=== PATIENT | female | born 1940 | race Caucasian/White ===

== ENCOUNTER → 2017-04-01 | Outpatient (CLI) | payer MEDICARE ==
--- NOTE | 2017-04-02 10:52 | MM ---
Reason for exam: screening (asymptomatic). Last mammogram was performed 1 year and 1 month ago. History: Patient is postmenopausal. Family history of breast cancer in maternal aunt. Physical Findings: A clinical breast exam by your physician is recommended on an annual basis and results should be correlated with mammographic findings. MG 3D Screening Mammo W/Cad Bilateral CC and MLO view(s) were taken. Prior study comparison: March 05, 2016, mammogram, performed at [facility]. February 14, 2015, mammogram, performed at [facility]. The breast tissue is heterogeneously dense. This may lower the sensitivity of mammography. Stable benign calcifications. There is no discrete abnormality. ASSESSMENT: Benign, BI-RAD 2 RECOMMENDATION: Routine screening mammogram of both breasts in 1 year.
== END | disposition home or self-care (01) ==
LOC: RADMAMWWP 10:36
PROVIDERS: ATTEND Family Medicine
DX: Z12.31 Encounter for screening mammogram for malignant neoplasm of breast (principal)
CPT/HCPCS: 77063; 77067

== ENCOUNTER → 2018-04-06 | Outpatient (CLI) | payer MEDICARE ==
--- NOTE | 2018-04-19 10:14 | MM ---
Reason for exam: screening (asymptomatic). Last mammogram was performed 1 year ago. History: Patient is postmenopausal. Family history of breast cancer in maternal aunt. MG 3D Screening Mammo W/Cad Bilateral CC and MLO view(s) were taken. Prior study comparison: April 01, 2017, bilateral MG 3d screening mammo w/cad. March 05, 2016, mammogram, performed at [facility]. The breast tissue is heterogeneously dense. This may lower the sensitivity of mammography. There is nodule of focal asymmetry 12-1 o'clock middle depth left breast appears more defined. ASSESSMENT: Incomplete: need additional imaging evaluation, BI-RAD 0 RECOMMENDATION: Special view mammogram of the left breast.
== END | disposition home or self-care (01) ==
LOC: RADMAMWWP 15:44
PROVIDERS: ATTEND Family Medicine
DX: Z12.31 Encounter for screening mammogram for malignant neoplasm of breast (principal)
CPT/HCPCS: 77063; 77067

== ENCOUNTER → 2018-04-22 | Outpatient (CLI) | payer MEDICARE ==
--- NOTE | 2018-04-24 11:29 | MM ---
Reason for exam: additional evaluation requested from abnormal screening. Last mammogram was performed 1 month ago. History: Patient is postmenopausal. Family history of breast cancer in maternal aunt. Took estrogen for 6 months beginning at age 51. Took progesterone for 6 months beginning at age 51. Benign right cyst biopsy in 1989. Physical Findings: Nurse did not find any significant physical abnormalities on exam. MG 3D Work Up W/Cad LT Spot compression CC, spot compression MLO, and LM view(s) were taken of the left breast. Prior study comparison: April 06, 2018, bilateral MG 3d screening mammo w/cad. April 01, 2017, bilateral MG 3d screening mammo w/cad. No discrete abnormality including area of concern. These results were verbally communicated with the patient and result sheet given to the patient on 04/22/18 ASSESSMENT: Probably benign, BI-RAD 3 RECOMMENDATION: Follow-up diagnostic mammogram of the left breast in 6 months.
== END | disposition home or self-care (01) ==
LOC: RADMAMWWP 14:37
PROVIDERS: ATTEND Family Medicine
DX: R92.8 Other abnormal and inconclusive findings on diagnostic imaging of breast (principal)
CPT/HCPCS: 77065; G0279; 77061

== ENCOUNTER → 2018-07-20 | Outpatient (CLI) | payer MEDICARE ==
[2018-07-20 11:01] LABS: Basophils % (A) 0 %; Eosinophils # (A) 0.2 k/uL (0-0.7); Eosinophils % (A) 3 %; HGB 11.1 gm/dL (11.4-16.0); Lymphocytes # (A) 1.2 k/uL (1.0-4.8); Lymphocytes % (A) 19 %; MCH 30.2 pg (25.0-35.0); MCHC 32.8 g/dL (31.0-37.0); Mean Platelet Volume 7.3; Monocytes # (A) 0.4 k/uL (0-1.0); Monocytes % (A) 6 %; Neutrophils # (A) 4.7 k/uL (1.3-7.7); Neutrophils % (A) 70 %; Platelet Count 262 k/uL (150-450); RDW 13.9 % (11.5-15.5); WBC 6.7 k/uL (3.8-10.6)
[2018-07-20 13:05] LABS: Erythrocyte Sedimentation Rate 18 mm/hr (0-20)
[2018-07-20 16:41] LABS: Albumin 4.3 g/dL (3.80-4.90); Albumin/Globulin Ratio 2.39 (1.60-3.17); Anion Gap 6.2 mmol/L (4.00-12.00); C Reactive Protein 1.1 mg/dL (0.0-0.8); Carbon Dioxide 24.8 mmol/L (21.6-31.8); Globulin 1.8 g/dL (1.6-3.3); Potassium 4.3 mmol/L (3.5-5.5); Total Bilirubin 0.3 mg/dL (0.3-1.2); Total Protein 6.1 g/dL (6.2-8.2)
== END | disposition home or self-care (01) ==
LOC: LABWHC1 09:45
PROVIDERS: ATTEND Physician Assistant
DX: K52.9 Noninfective gastroenteritis and colitis, unspecified (principal)
CPT/HCPCS: 36415; 80053; 83630; 85025; 85652; 86140; 87045; 87046; 87324

== ENCOUNTER 2018-08-09 09:17 | Day surgery (SDC) | payer MEDICARE ==
[2018-08-08 08:31] VITALS: BMI 28.9
[~2018-08-09 09:17] MED LIST: LACTATED RINGERS 1,000 ML IV SCH
[2018-08-09 10:07] VITALS: RESP 16; TEMP 98.3
[2018-08-09] MEDS ORDERED: LIDOCAINE 1% 20 ML VIAL (10MG/ML) FOR IV START INTRADERMA ONE (10:15)
[2018-08-09] MEDS ORDERED: PROPOFOL 10 MG/ML 20 ML VIAL IV ONE (10:34)
--- NOTE | 2018-08-09 11:05 | P.PCN ---
Date of Procedure: 08/09/18 Procedure(s) Performed: Procedure: Colonoscopy and biopsy. Preoperative diagnosis: Chronic diarrhea and history of diarrhea predominant irritable bowel syndrome. Postoperative diagnosis: 1. Exam of the colon and terminal ileum within normal limits. 2. Biopsies obtained from the terminal ileum and right colon. Preparation: HalfLytely prep. Sedation: Was provided by anesthesia. Brief clinical history: The patient is a 77-year-old female who is scheduled for this evaluation because of chronic diarrhea. She was diagnosed with diarrhea predominant irritable bowel syndrome around 7-10 years ago. The patient has been having worsening symptoms despite using probiotics and Lomotil in increasing doses. She also reinitiated anti-spasmodic therapy. Her last colonoscopy was in April 2015. Procedure: With the patient on her left lateral decubitus position and after informed consent and adequate sedation, the perianal area was inspected and it did not show any fissures or fistulas. There were no masses felt on digital rectal examination. The Olympus CFH 190L video colonoscope was then inserted in the rectum in the usual fashion and advanced to the cecum. I intubated the ileocecal valve and examined the terminal ileum. Terminal ileum and colon appeared healthy with no edema, erythema, friability, ulceration, exudation or spontaneous bleeding. No polyps or tumors were seen or any obvious diverticular disease or other pathology. I obtained biopsies from the right colon and terminal ileum then I retroflexed the endoscope in the rectum before the endoscope was withdrawn. The patient tolerated the procedure well. Plan: The patient was reassured. Will await biopsy results. She will follow-up with you as planned and she will follow-up in our office in a week or so and we would keep you updated on her progress.
[2018-08-09 11:39] VITALS: BP 146/76; PULSE 70
== END 2018-08-09 11:40 | disposition home or self-care (01) ==
LOC: ORWHC2ENDO 09:17
DX: K52.839 Microscopic colitis, unspecified (principal); R19.7 Diarrhea, unspecified; M19.90 Unspecified osteoarthritis, unspecified site; I10 Essential (primary) hypertension; E78.5 Hyperlipidemia, unspecified; E07.9 Disorder of thyroid, unspecified; Z88.5 Allergy status to narcotic agent; Z88.2 Allergy status to sulfonamides; Z91.040 Latex allergy status; Z79.890 Hormone replacement therapy; Z79.82 Long term (current) use of aspirin; Z79.899 Other long term (current) drug therapy; Z88.8 Allergy status to other drugs, medicaments and biological substances
CPT/HCPCS: 88305; 88313; 45380; J2704

== ENCOUNTER → 2018-10-24 | Outpatient (CLI) | payer MEDICARE ==
--- NOTE | 2018-10-25 09:55 | MM ---
Reason for exam: follow-up at short interval from prior study. Last mammogram was performed 6 months ago. History: Patient is postmenopausal. Family history of breast cancer in maternal aunt. Took estrogen for 6 months beginning at age 51. Took progesterone for 6 months beginning at age 51. Physical Findings: Nurse did not find any significant physical abnormalities on exam. MG 3D Diag Mammo W/Cad LT CC and MLO view(s) were taken of the left breast. Prior study comparison: April 22, 2018, left breast MG 3d work up w/cad LT. April 06, 2018, bilateral MG 3d screening mammo w/cad. The breast tissue is heterogeneously dense. This may lower the sensitivity of mammography. No significant new finding when compared with prior studies. ASSESSMENT: Benign, BI-RAD 2 RECOMMENDATION: Return to routine screening mammogram schedule for both breasts.
== END | disposition home or self-care (01) ==
LOC: RADMAMWWP 09:23
PROVIDERS: ATTEND Family Medicine
DX: R92.8 Other abnormal and inconclusive findings on diagnostic imaging of breast (principal)
CPT/HCPCS: 77065; G0279; 77061

== ENCOUNTER → 2019-04-18 | Outpatient (CLI) | payer MEDICARE ==
--- NOTE | 2019-04-18 16:07 | BD ---
EXAMINATION TYPE: Axial Bone Density DATE OF EXAM: 04/18/2019 COMPARISON: NONE CLINICAL HISTORY: MENOPAUSAL STATE Height: 5 FT 1 /4 IN Weight: 119 FRAX RISK QUESTIONS: Alcohol (3 or more units per day): NO Family History (Parent hip fracture): NO Glucocorticoids (More than 3mos): YES (Ex: prednisone, prednisolone, methylprednisolone, dexamethasone, and hydrocortisone). History of Fracture in Adulthood: NO Secondary Osteoporosis: 1. Type 1 Diabetes: NO 2. Hyperthyroidism: NO 3. Menopause before 45: NO 4. Malnutrition: NO 5. Chronic liver disease: NO Rheumatoid Arthritis: NO Current Tobacco Use: NO RISK FACTORS HISTORY OF: Surgery to Spine/Hip(right/left)/Wrist (right/left): LUMBAR SURG L4 When: 1978 Family History of Osteoporosis: YES Active: YES Postmenopausal woman: AGE 51 Lost more than 2 inches in height since high school: YES MEDICATIONS: Prednisone or other steroids: YES How Long: SINCE JULY- AUGUST 2018 MICROSCOPIC COLITIS Thyroid Medications: YES Which medication: LEVOTHYROXINE How Long: APPROX 10 YEARS Additional Medications: CARDVEDILOL, AMLODIPINE BESYLATE, LEVOTHYROXINE, BUDESONIDE Additional History: EXAM MEASUREMENTS: Bone mineral density about the R hip (g/cm2): 0.907 Bone mineral density about the L hip (g/cm2): 0.952 T Score values are as follows: -----R Neck: -0.9 -----L Neck: -0.6 -----R Total: -1.2 -----L Total: -0.5 BASELINE Bone mineral density about the L Wrist (g/cm2): 0.399 T Score values are as follows: -----Prox. R+U: -3.2 BASELINE IMPRESSION: Osteoporosis (T Score less than -2.5). There is increased fracture risk and therapy is usually indicated based on age. Re-Screen 1-2 years. NOTE: T-SCORE=SD OF THE YOUNG ADULT MEAN.
--- NOTE | 2019-04-19 09:47 | MM ---
Reason for exam: screening (asymptomatic). Last mammogram was performed 6 months ago. History: Patient is postmenopausal. Family history of breast cancer in maternal aunt. Took estrogen for 6 months beginning at age 51. Took progesterone for 6 months beginning at age 51. Physical Findings: A clinical breast exam by your physician is recommended on an annual basis and results should be correlated with mammographic findings. MG 3D Screening Mammo W/Cad Bilateral CC and MLO view(s) were taken. Prior study comparison: October 24, 2018, left breast MG 3d diag mammo w/cad LT. April 22, 2018, left breast MG 3d work up w/cad LT. The breast tissue is heterogeneously dense. This may lower the sensitivity of mammography. Benign appearing bilateral calcifications. Previous mammotome biopsy in the left breast. No significant changes when compared with prior studies. ASSESSMENT: Benign, BI-RAD 2 RECOMMENDATION: Routine screening mammogram of both breasts in 1 year.
== END | disposition home or self-care (01) ==
LOC: RADMAMWWP 14:00
PROVIDERS: ATTEND Family Medicine
DX: Z12.31 Encounter for screening mammogram for malignant neoplasm of breast (principal); M81.0 Age-related osteoporosis without current pathological fracture
CPT/HCPCS: 77063; 77067; 77080

== ENCOUNTER → 2020-05-17 | Outpatient (CLI) | payer MEDICARE ==
--- NOTE | 2020-05-21 07:20 | MM ---
Reason for exam: screening (asymptomatic). Last mammogram was performed 1 year and 1 month ago. History: Patient is postmenopausal. Family history of breast cancer in maternal aunt. Took hormonal contraceptives for 6 months. Took estrogen for 6 months beginning at age 51. Took progesterone for 6 months beginning at age 51. Physical Findings: A clinical breast exam by your physician is recommended on an annual basis and results should be correlated with mammographic findings. MG 3D Screening Mammo W/Cad Bilateral CC and MLO view(s) were taken. Prior study comparison: April 18, 2019, bilateral MG 3d screening mammo w/cad. October 24, 2018, left breast MG 3d diag mammo w/cad LT. The breast tissue is heterogeneously dense. This may lower the sensitivity of mammography. No significant changes when compared with prior studies. ASSESSMENT: Benign, BI-RAD 2 RECOMMENDATION: Routine screening mammogram of both breasts in 1 year.
== END | disposition home or self-care (01) ==
LOC: RADMAMWWP 14:31
PROVIDERS: ATTEND Family Medicine
DX: Z12.31 Encounter for screening mammogram for malignant neoplasm of breast (principal)
CPT/HCPCS: 77063; 77067

== ENCOUNTER → 2020-10-01 | Outpatient (CLI) | payer MEDICARE | END | disposition home or self-care (01) | CPT/HCPCS: 80053; 81003; 85027; 85610; 85730; 87070; 93005 ==

== ENCOUNTER 2020-10-31 05:32 | Day surgery (SDC) | payer MEDICARE ==
[2020-10-28 16:01] VITALS: BMI 22.3
[~2020-10-31 05:32] MED LIST changes: +ACETAMINOPHEN TAB 500 MG TAB PO PRN; +DEXAMETHASONE SOD PHOSPHATE 4 MG/ML 1 ML VIAL IV ONE; +GABAPENTIN 300 MG CAP PO PRN; -LACTATED RINGERS 1,000 ML IV SCH; +LIDOCAINE 1% (10MG/ML) FOR IV START INTRADERMA PRN; +MELOXICAM 7.5 MG TAB PO PRN; +MIDAZOLAM 2 MG/2 ML VIAL IV PRN; +ONDANSETRON 4 MG/2 ML VIAL IVP ONE; +ONDANSETRON 4 MG/2 ML VIAL IVP PRN; +ROPIVACAINE/EPI/CLONIDINE/KET 50 ML SYRINGE MISCELLANE PRN; +TRANEXAMIC ACID 1,000 MG in SODIUM CHLORIDE 0.9% 100 ML IVPB PRN
[2020-10-31] MEDS ORDERED: DEXAMETHASONE SOD PHOSPHATE 4 MG/ML 1 ML VIAL IVP ONE (06:21)
[2020-10-31] MEDS: LACTATED RINGERS 1,000 ML IV SCH ×4 (06:21→21:39)
[2020-10-31 06:34] LABS: Glucose,Whole Blood 119 mg/dL (75-99)
[2020-10-31] MEDS ORDERED: fentaNYL (PF) 50 MCG/ML 2 ML AMP IVP ONE (06:35)
[2020-10-31] MEDS ORDERED: MIDAZOLAM 2 MG/2 ML VIAL IVP ONE (06:35)
--- NOTE | 2020-10-31 06:53 | P.ANPRN ---
Procedure Note - Anesthesia - Nerve Block Performed Right Adductor Canal Infusion Time Out Performed: Yes (633) Date of Procedure: 10/31/20 Procedure Start Time: 06:34 Procedure Stop Time: 06:44 Location of Patient: PreOp Indication: Acute Post-Operative Pain, Analgesia, Dx/Pain Location, Requested by Surgeon Specifically requested for management of pain by DrLavinia: Jose M Fleming Sedation Type: Sedate with meaningful contact maintained Preparation: Sterile Prep, Sterile Dressing Position: Supine Catheter: Indwelling Needle Types: Pajunk Needle Gauge: 18 Ultrasound used to visualize needle placement: Yes Ultrasound used to observe medication spread: Yes Injectate: Other (see comment) (20 mL 0.25% ropivacaine) Blood Aspirated: No Pain Paresthesia on Injection Noted: No Resistance on Injection: Normal Image Stored and Saved: Yes Events: Uneventful and Well Tolerated
--- NOTE | 2020-10-31 06:55 | P.ANPRN ---
Procedure Note - Anesthesia - Nerve Block Performed Right iPack Single Time Out Performed: Yes (0633) Date of Procedure: 10/31/20 Procedure Start Time: 06:44 Procedure Stop Time: 06:49 Location of Patient: PreOp Indication: Acute Post-Operative Pain, Analgesia, Dx/Pain Location, Requested by Surgeon Specifically requested for management of pain by DrLavinia: Jose M Fleming Sedation Type: Sedate with meaningful contact maintained Preparation: Sterile Prep Position: Supine Catheter: None Needle Types: Pajunk Needle Gauge: 20 Ultrasound used to visualize needle placement: Yes Ultrasound used to observe medication spread: Yes Injectate: Other (see comment) (10 mL 0.25% ropivicaine) Blood Aspirated: No Pain Paresthesia on Injection Noted: No Resistance on Injection: Normal Image Stored and Saved: Yes Events: Uneventful and Well Tolerated
[2020-10-31] MEDS ORDERED: ROPIVACAINE 5 MG/ML 30 ML VIAL ONE (07:05)
[2020-10-31] MEDS ORDERED: fentaNYL (PF) 50 MCG/ML 2 ML AMP ONE (07:05)
[2020-10-31] MEDS ORDERED: LIDOCAINE 1% INJ 10MG/ML (20 ML MDV) ONE (07:05)
[2020-10-31] MEDS ORDERED: TRANEXAMIC ACID 1,000 MG/10 ML VIAL ONE (07:05)
[2020-10-31] MEDS ORDERED: MIDAZOLAM 2 MG/2 ML VIAL ONE (07:05)
[2020-10-31] MEDS ORDERED: SODIUM CHLORIDE 0.9% 100 ML BAG ONE (07:05)
[2020-10-31] MEDS ORDERED: PROPOFOL 10 MG/ML 20 ML VIAL IV ONE (07:05)
[2020-10-31] MEDS ORDERED: ceFAZolin 3,000 MG in SODIUM CHLORIDE 0.9% IRRIGATIO 3,000 ML IRRIGATION ONE (07:36)
[2020-10-31] MEDS ORDERED: ROPIVACAINE 0.2%-NS ON-Q PUMP 1,090 MG, EMPTY PAIN BALL 1 EACH MISCELLANE PRN (09:20)
[2020-10-31] MEDS ORDERED: HYDROmorphone 0.2 MG/1 ML SYRINGE IVP PRN (09:23)
[2020-10-31] MEDS ORDERED: ACETAMINOPHEN TAB 325 MG TAB PO PRN (09:23)
[2020-10-31] MEDS ORDERED: MAGNESIUM HYDROXIDE 2,400 MG/10 ML CUP PO PRN (09:23)
[2020-10-31] MEDS ORDERED: bisacodyL 10 MG SUPP RECTAL PRN (09:23)
[2020-10-31] MEDS ORDERED: ONDANSETRON 4 MG/2 ML VIAL IVP PRN (09:23)
[2020-10-31] MEDS ORDERED: traMADol 50 MG TAB PO PRN (09:23)
[2020-10-31] MEDS ORDERED: NA PHOS,M-B/NA PHOS,DI-BA 133 ML ENEMA RECTAL PRN (09:23)
[2020-10-31] MEDS ORDERED: HYDROcodone/APAP 5-325MG 1 EACH TAB PO PRN (09:23)
[2020-10-31] MEDS ORDERED: NALOXONE 0.4 MG/ML 1 ML VIAL IV PRN (09:23)
[2020-10-31] MEDS ORDERED: HYDROmorphone 0.5 MG/0.5 ML SYRINGE IVP PRN (09:23)
[2020-10-31] MEDS: fentaNYL (PF) 50 MCG/ML 2 ML AMP IVP PRN ×2 (09:44→10:28)
[2020-10-31] MEDS ORDERED: LACTATED RINGERS 1,000 ML IV ONE (09:51)
--- NOTE | 2020-10-31 09:59 | XR ---
EXAMINATION TYPE: XR knee limited RT DATE OF EXAM: 10/31/2020 CLINICAL HISTORY: Right knee pain and arthritis status post total knee replacement. TECHNIQUE: Portable AP and crosstable lateral views of the right knee are obtained immediately posto peratively. COMPARISON: None FINDINGS: [place] osseous structures are demineralized. Metallic hardware from total right knee arthro plasty is seen and appears satisfactory in alignment and position. There is evidence of recent surge ry with diffuse subcutaneous gas and soft tissue swelling noted. IMPRESSION: METALLIC HARDWARE FROM TOTAL RIGHT KNEE ARTHROPLASTY IS SATISFACTORY IN ALIGNMENT.
--- NOTE | 2020-10-31 10:26 | OP ---
OPERATIVE REPORT DATE OF PROCEDURE: October 31, 2020. SURGEON: Jose M Fleming MD. TALENT DEVELOPMENT DIRECTOR: Ferdinand CLINE. PREOPERATIVE DIAGNOSIS: Right knee osteoarthrosis. POSTOPERATIVE DIAGNOSIS: Right knee osteoarthrosis. OPERATION: Right total knee arthroplasty. ANESTHESIA: Spinal with sedation. ESTIMATED BLOOD LOSS: 100 mL. TOURNIQUET: Tourniquet time was 43 minutes at 250 mmHg. COMPLICATIONS: None apparent. DRAINS: None. DISPOSITION: Postanesthesia care unit. INDICATIONS: Hellen is a very pleasant 80-year-old female with longstanding history of right knee pain. History and physical examination are consist with advanced right knee osteoarthrosis. She has been through significant nonoperative management up to this point. Further treatment options were discussed and she has decided to go forward with right total knee arthroplasty. The risks of procedure were discussed with her in detail. These risks include, but are not limited to risk of infection, nerve damage, bleeding, pain, and a small risk of deep vein thrombosis which could lead to fatal pulmonary emboli. There is also risk of loosening of the implant which could require revision operation. The patient understands these risks. All her questions were answered to her satisfaction. Appropriate informed consent was obtained. DESCRIPTION OF THE PROCEDURE: The patient identified in preoperative holding area. Surgical site was marked by both the patient and myself. She was given 2 grams of Ancef IV prophylactic purposes. She was then transferred to the operative suite. She was placed supine on the operative table. Spinal anesthetic was then administered and dosed per the anesthesia without apparent complication. Examination under anesthesia was then performed. The patient was 2-3 degrees shy of full extension. She had 100 degrees of flexion. The medial collateral ligament, lateral collateral ligament posterior cruciate ligaments were stable. Tourniquet was then placed high on the right upper thigh, well-padded in preparation for surgery. The patient's right lower extremity was then prepped and draped in usual sterile fashion. Standard surgical pause undertaken to ensure that we were operating on the correct site and that appropriate preoperative antibiotics were given. All staff in the room were in agreement and we proceeded. The outlines of the patella were marked with a surgical pen. A planned 12 cm vertical incision centered over the patella was marked with surgical pen. Leg was then exsanguinated with an Esmarch dressing. The knee was then flexed and tourniquet inflated to 250 mmHg. The total tourniquet time for the procedure was 43 minutes Incision was then made with a 10 blade scalpel. Dissection was carried down sharply overlying fascia. Great care was taken to minimize the skin flaps. The knee was then exposed using a standard medial parapatellar approach. A small cuff of quadriceps tendon was then left for suturing. She was in quite a bit of varus preoperatively. A standard medial release was then made. The superficial medial collateral ligament was dissected off the bone around the posterior aspect of the proximal tibia. The medial meniscus was then excised as well. The lateral meniscus was also released anteriorly. The leg was then externally rotated. The patella was everted. The knee was flexed. The retractors were then placed to protect the collateral ligaments. I then proceeded to remove the infrapatellar fat pad. This was excised sharply tangentially with fibers of the patellar tendon. I then proceeded to remove peripheral osteophytes. This was done with a rongeur. I then proceeded with the distal femoral resection. She did have near full extension. A planned 9 mm resection was then done. The femoral canal was then entered. The midline of the femur approximately 10 mm anterior to the origin of the posterior cruciate ligament. The puma was then advanced down the center of the femur and placed intramedullary. Based on the preoperative radiographs, the angle between the anatomic and mechanical axis of the femur was approximately 4-5 degrees. The valgus angle of the distal femoral cutting guide was then set at 4 degrees for the right knee. The distal femoral cutting guide was then advanced over the intramedullary puma. This was seated firmly against the femur. I then as mentioned planned to take 9 mm off the distal femur. The cutting block was then secured onto the femur with pins. The jig was then removed. The distal femoral cut was made through the slot of the block. The pins were then removed. The distal femoral cutting block was removed. The accuracy of the distal femoral cuts was checked with 2 flat bars. I then proceeded with femoral sizing. The posterior referencing sizing guide held firmly against the resected distal surface of the femur. Posterior condyles were resting on the posterior plane of the guide. The sizing guide was then placed on the anterior femur. The size was measured as a size 6. I then assessed for femoral rotation. Plan for 3 degrees of external rotation. Three degrees of external rotation was placed onto the jig. These holes were then marked. I then confirmed the rotation by 3 separate methods. This is done using epicondylar axis as well as Whitesides line and posterior referencing. It was deemed that the external rotation was proper. I then went forward placing the femoral cutting block. This was placed over the previously placed pin holes with the Joseph wing was then placed on the anterior slots to ensure that we would not notch the anterior femur with the anterior femoral cut. I then proceeded with the anterior femoral cut. This was flush with the anterior cortex of the femur. The posterior cuts were then made followed by the anterior chamfer cut, then the posterior chamfer cut. The cutting block was then removed. Throughout the resection, the collateral ligaments were protected with retractors. I then placed a trial size 6 femur slightly wide, but the narrow fit very nicely and it fit flush with the distal end of the femur. The drill holes were then made. I then proceeded with the tibial cut. I planned for cruciate retaining knee. The guide was placed and set for varus valgus and for slope. The height set for approximate 2 mm resection from the medial tibial plateau which was the lower side. I was happy with the alignment and amount of resection. The cutting block was then pinned to the proximal tibia. The alignment puma was removed. The proximal tibia was resected with a reciprocating saw. Again, this was done with retractors protecting the collateral ligaments as well as the posterior cruciate ligament. I then proceeded to evaluate the flexion extension gaps where a 10 mm block was then placed. The flexion and extension gaps were equal. I then proceeded with resection of posterior osteophytes. She had very minimal posterior osteophytes. This was done using a curved osteotome. This resected the posterior osteophytes and posterior capsule stripping was done off the posterior aspect of the femur. The osteophytes were then removed. I then proceed to resection of the patella. The thickness of the patella was measured using the caliper. The thickness was 22 mm. The thickness of the anticipated patellar dome was taken into account. Resection was then performed and confirmed to be equal in 4 quadrants using a caliper. Approximately 14 mm of bone remained after resection. A 29 x 8 standard patellar trial was then placed. The holes drilled. The trial was then placed. I then proceeded with sizing tibial plate. A size D tibial plate fit very nicely. I then placed the trial tibia, femur, the tibial tray and the patellar button. A 10 mm trial tibial insert was also placed. The components fit very nicely. She had full extension and flexion. The extension and flexion gaps were equal and stable to both varus and valgus stress. The patella tracked appropriately. Tibial tray rotation was then marked with a Bovie. This was externally rotated properly. I then proceed with tibial preparation. First drilled femoral holes, removed femoral component. The tibial tray was then set for proper external rotation as well as mediolateral placement onto the tibia. It was then pinned into place. I then proceeded with punching the keel. I then decided to proceed with cementing of all of our components. The knee was thoroughly irrigated with sterile saline solution via pulse lavage. The lateral geniculate artery was identified and cauterized. All blood was removed from the bone of the tibia femur and patella with pulse lavage. I then proceeded with cementing. Two packs of antibiotic bone cement were prepared on the back table by the surgical elastic knitter hand frame. I then proceed with cementing the tibia first. Cement was impacted in the keel as well as deeply seated in the bone. A second coat cement was then placed. The tibia was then impacted into place. Excess cement was removed with Camila's and jokers. I then proceeded with cementing the femoral component. The femoral component was also cemented using standard technique. Excess cement was removed. A 10 mm trial insert was then placed into the knee. It was brought into full extension with a constant axial load placed until the cement had hardened. The patellar component was then cemented. This held firmly with a compressive device until the cement had dried. When the cement had dried, the knee was taken out of extension. All excess cement was removed from around the prosthesis. I then trialed the knee with a 10 mm insert. Flexion extension gaps were appropriate. The knee was stable very. It came into full extension. I decided to go forward with a 10 mm medial congruent cross-linked cruciate- retaining tibial insert. Polyethylene was then placed on the tibial tray and locked into place. The knee was then reduced. The knee was again further irrigated with sterile saline solution with antibiotic added. The tourniquet was then deflated. Total tourniquet time for the procedure was 43 minutes at 250 mmHg. Final components were Abdulkadir Persona size 6 narrow cruciate-retaining femoral component, a size D tibial tray, a 10 mm medial congruent cruciate-retaining polyethylene insert and a 29 x 8 mm patella. I then proceeded with closure. Again, the knee was thoroughly irrigated. The quadriceps tendon and the medial retinaculum were reapproximated with #2 Ethibond suture. The extensor mechanism was then closed with a running #2 Quill suture. Subcutaneous tissues were closed with 2-0 Vicryl interrupted suture. The skin was closed with a running 3-0 Quill suture. Dermabond was applied to the incision. Sterile compressive dressings were then applied. All sponge and needle counts were deemed correct prior to closure. The patient tolerated the procedure without apparent complication. She was transferred to the recovery room in stable condition. MMODL / IJN: [id number] /
[2020-10-31] MEDS: HYDROmorphone 0.5 MG/0.5 ML SYRINGE IVP PRN ×2 (11:06→14:09)
[2020-10-31] MEDS ORDERED: PROMETHAZINE 25 MG TAB PO ONE (17:50)
[2020-10-31] MEDS: ASPIRIN 81 MG PO SCH (20:49)
[2020-10-31] MEDS: HYDROcodone/APAP 10-325MG 1 EACH TAB PO PRN (20:49)
[2020-10-31] MEDS ORDERED: SENNOSIDES-DOCUSATE SODIUM 1 EACH TAB PO SCH (21:00)
[2020-10-31] MEDS ORDERED: TEMAZEPAM 15 MG CAP PO PRN (21:00)
[2020-11-01] MEDS: HYDROcodone/APAP 10-325MG 1 EACH TAB PO PRN ×3 (01:50→11:54)
[2020-11-01] MEDS: LACTATED RINGERS 1,000 ML IV SCH (06:53)
[2020-11-01 07:29] VITALS: PULSE 71; TEMP 98.3
--- NOTE | 2020-11-01 07:45 | P.DS ---
Providers Expected date of discharge: 11/01/20 Attending physician: Jose M Fleming Consults: 10/31/20 09:23 Consult Physician Routine Consulting Provider: Tracy Young Consult Reason/Comments: post op medical management Do you want consulting provider notified?: Yes Primary care physician: Corrie Butterfield - Discharge Diagnosis(es) (1) Osteoarthritis of right knee Patient was admitted to the OR on 10/31/20 to undergo a right total knee arthroplasty. She had failed conservative measures as an outpatient and desired to proceed with elective surgery after given informed consent. She underwent the above procedure which she tolerated well without complication. Postoperative hospital course has remained without complication. On day of discharge she is afebrile, vital signs stable, labs within acceptable ranges, tolerating by mouth meds and diet, voiding without difficulty, positive flatus, denies abdominal pain or calf pain, pain is controlled on oral pain medication and has no new complaints. Wound is benign, neurovascular status is intact, calf is soft and nontender, abdomen soft and nontender. Review of systems is negative for numbness, tingling, fever, chills, chest pain, shortness of breath, nausea, vomiting, dizziness, headaches, slurred speech or other. Current Visit: Yes Status: Acute Priority: Medium (2) Status post total right knee replacement Current Visit: Yes Status: Acute Priority: Medium Procedures: Right TKA Patient Condition at Discharge: Good Plan - Discharge Summary Discharge Rx Participant: Yes New Discharge Prescriptions: New Aspirin [Adult Low Dose Aspirin EC] 81 mg PO BID #60 tablet. Ondansetron [Zofran] 4 mg PO Q8HR PRN #30 tab PRN Reason: Nausea Docusate [Colace] 100 mg PO BID #60 capsule HYDROcodone/APAP 7.5-325MG [[place] 7.5-325] 1 each PO Q4H PRN #42 tab PRN Reason: Pain No Action Multivitamins, Thera [Multivitamin (formulary)] 1 tab PO DAILY amLODIPine BESYLATE 5 mg PO HS Levothyroxine Sodium [Synthroid] 50 mcg PO QAM L.acidoph,Paracasei, B.lactis [Probiotic] 1 each PO DAILY carvediloL [Carvedilol] 25 mg PO BID Aspirin [Adult Low Dose Aspirin EC] 81 mg PO DAILY Cholecalciferol [Vitamin D3 (25 Mcg = 1000 Iu)] 50 mcg PO DAILY Vitamin E [Vitamin E (1000 Iu = 450 MG)] 1,000 unit PO DAILY Budesonide [Budesonide EC] 6 mg PO QAM Calcium Carbonate [Calcium] 600 mg PO BID Discharge Medication List Aspirin [Adult Low Dose Aspirin EC] 81 mg PO DAILY 08/08/18 [History] L.acidoph,Paracasei, B.lactis [Probiotic] 1 each PO DAILY 08/08/18 [History] Levothyroxine Sodium [Synthroid] 50 mcg PO QAM 08/08/18 [History] Multivitamins, Thera [Multivitamin (formulary)] 1 tab PO DAILY 08/08/18 [History] amLODIPine BESYLATE 5 mg PO HS 08/08/18 [History] carvediloL [Carvedilol] 25 mg PO BID 08/08/18 [History] Budesonide [Budesonide EC] 6 mg PO QAM 10/28/20 [History] Calcium Carbonate [Calcium] 600 mg PO BID 10/28/20 [History] Cholecalciferol [Vitamin D3 (25 Mcg = 1000 Iu)] 50 mcg PO DAILY 10/28/20 [History] Vitamin E [Vitamin E (1000 Iu = 450 MG)] 1,000 unit PO DAILY 10/28/20 [History] Aspirin [Adult Low Dose Aspirin EC] 81 mg PO BID #60 tablet.dr 11/01/20 [Rx] Docusate [Colace] 100 mg PO BID #60 capsule 11/01/20 [Rx] HYDROcodone/APAP 7.5-325MG [[place] 7.5-325] 1 each PO Q4H PRN #42 tab 11/01/20 [Rx] Ondansetron [Zofran] 4 mg PO Q8HR PRN #30 tab 11/01/20 [Rx] Follow up Appointment(s)/Referral(s): Jose M Fleming MD [STAFF PHYSICIAN] - 10 Days Activity/Diet/Wound Care/Special Instructions: Take meds as directed F/U in office Weightbear as tolerated Keep wound clean and dry May shower in 3 days if no bleeding Discharge Disposition: HOME WITH HOME HEALTH SERVICES
[2020-11-01 08:48] VITALS: BP 137/60; RESP 17
[2020-11-01] MEDS: ASPIRIN 81 MG PO SCH (08:53)
[2020-11-01 10:09] LABS: Basophils # (A) 0.02 X 10*3/uL (0.00-0.10); Basophils % (A) 0.1 %; Eosinophils # (A) 0 X 10*3/uL (0.04-0.35); Eosinophils % (A) 0 %; HCT 28.7 % (37.2-46.3); HGB 9.5 g/dL (12.0-15.0); Lymphocytes # (A) 1.26 X 10*3/uL (0.90-5.00); Lymphocytes % (A) 8.7 %; MCH 31.6 pg (27.0-32.0); MCHC 33.1 g/dL (32.0-37.0); MCV 95.3 fL (80.0-97.0); Mean Platelet Volume 10.4 fL (9.5-12.2); Neutrophils # (A) 11.77 X 10*3/uL (1.80-7.70); Neutrophils % (A) 81.8 %; Platelet Count 265 X 10*3/uL (140-440); RBC 3.01 X 10*6/uL (4.10-5.20); RDW 13.2 % (11.5-14.5); WBC 14.41 X 10*3/uL (4.50-10.00)
--- NOTE | 2020-11-01 10:14 | P.CONS ---
History of Present Illness - History of Present Illness This is a pleasant 80 years old female with past medical history of hypertens ion, hyperlipidemia, osteoarthritis, hypothyroidism. Presents for right knee replacement secondary to her severe osteoarthritis. Operatively day 0 and she was doing well. Pain controlled. Denies chest pain or dyspnea or headache. Fully awake and oriented. No issue with bowel or urine. Afebrile and hemodynamically stable. No labs blood glucose at 119. Patient was complaining of from nausea uncontrolled with Zofran and Phenergan has been ordered. Review of Systems CONSTITUTIONAL: No fever, no malaise, no fatigue. HEENT: No recent visual problems or hearing problems. Denied any sore throat. CARDIOVASCULAR: No orthopnea, PND, no palpitations, no syncope. PULMONARY: No shortness of breath, no cough, no hemoptysis. GASTROINTESTINAL: No diarrhea, no nausea, no vomiting, no abdominal pain. Normoactive bowel sounds. NEUROLOGICAL: No headaches, no weakness, no numbness. HEMATOLOGICAL: Denies any bleeding or petechiae. GENITOURINARY: Denies any burning micturition, frequency, or urgency. -MUSCULOSKELETAL/RHEUMATOLOGICAL: Denies any joint pain, swelling, or any muscle pain. Except for her right knee as above ENDOCRINE: Denies any polyuria or polydipsia. Past Medical History Past Medical History: Hyperlipidemia, Hypertension, Osteoarthritis (OA), Thyroid Disorder Additional Past Medical History / Comment(s): Strained right ankle. Microscopic Colitis. Hx Anemia. Varicose vein. History of Any Multi-Drug Resistant Organisms: None Reported Past Surgical History: Appendectomy, Back Surgery Additional Past Surgical History / Comment(s): Cysts removed, colonoscopies. Past Anesthesia/Blood Transfusion Reactions: Postoperative Nausea & Vomiting (PONV) Additional Past Anesthesia/Blood Transfusion Reaction / Comm: PONV X1. Past Psychological History: No Psychological Hx Reported Smoking Status: Never smoker Past Alcohol Use History: None Reported Past Drug Use History: None Reported - Past Family History Mother Family Medical History: Cancer Additional Family Medical History / Comment(s): Lung cancer. Medications and Allergies Home Medications Medication Instructions Recorded Confirmed Type Aspirin [Adult Low Dose Aspirin EC] 81 mg PO DAILY 08/08/18 10/28/20 History L.acidoph,Paracasei, B.lactis 1 each PO DAILY 08/08/18 10/28/20 History [Probiotic] Levothyroxine Sodium [Synthroid] 50 mcg PO QAM 08/08/18 10/31/20 History Multivitamins, Thera [Multivitamin 1 tab PO DAILY 08/08/18 10/28/20 History (formulary)] amLODIPine BESYLATE 5 mg PO HS 08/08/18 10/31/20 History carvediloL [Carvedilol] 25 mg PO BID 08/08/18 10/31/20 History Budesonide [Budesonide EC] 6 mg PO QAM 10/28/20 10/31/20 History Calcium Carbonate [Calcium] 600 mg PO BID 10/28/20 10/28/20 History Cholecalciferol [Vitamin D3 (25 50 mcg PO DAILY 10/28/20 10/28/20 History Mcg = 1000 Iu)] Vitamin E [Vitamin E (1000 Iu = 1,000 unit PO DAILY 10/28/20 10/28/20 History 450 MG)] Aspirin [Adult Low Dose Aspirin EC] 81 mg PO BID #60 tablet.dr 11/01/20 Rx Docusate [Colace] 100 mg PO BID #60 capsule 11/01/20 Rx HYDROcodone/APAP 7.5-325MG [[place] 1 each PO Q4H PRN #42 tab 11/01/20 Rx 7.5-325] Ondansetron [Zofran] 4 mg PO Q8HR PRN #30 tab 11/01/20 Rx Allergies Allergy/AdvReac Type Severity Reaction Status Date / Time codeine Allergy See Comment Verified 10/31/20 06:06 latex Allergy Rash/Hives Verified 10/31/20 06:06 Sulfa (Sulfonamide Allergy Rash/Hives Verified 10/31/20 06:06 Antibiotics) statins Allergy See Comment Uncoded 10/28/20 15:30 Physical Exam Vitals: Vital Signs Temp Pulse Pulse Resp BP Pulse Ox 10/31/20 12:46 67 16 126/62 94 L 10/31/20 12:15 59 L 16 142/77 94 L 10/31/20 12:00 61 16 130/63 94 L 10/31/20 11:30 60 16 137/64 96 10/31/20 11:18 65 16 145/65 96 10/31/20 11:02 64 16 153/68 97 10/31/20 10:45 62 16 146/65 98 10/31/20 10:33 58 L 16 142/59 98 10/31/20 10:17 67 16 141/65 98 10/31/20 10:00 62 16 144/60 98 10/31/20 09:48 56 L 16 151/69 98 10/31/20 09:31 60 16 159/68 98 10/31/20 09:15 61 16 168/77 98 10/31/20 08:59 97.5 F L 64 12 156/68 98 10/31/20 07:01 65 14 180/77 98 10/31/20 05:59 96.9 F L 71 16 177/79 96 Intake and Output 10/30/20 10/31/20 10/31/20 22:59 06:59 14:59 Intake Total 700 451 Output Total 100 Balance 700 351 Intake: IV 700 451 Output: Estimated Blood Loss 100 Other: Weight 55 kg GENERAL: The patient is alert and oriented x3, not in any acute distress. Well developed, well nourished. HEENT: Pupils are round and equally reacting to light. EOMI. No scleral icterus. No conjunctival pallor. Normocephalic, atraumatic. No pharyngeal erythema. No thyromegaly. CARDIOVASCULAR: S1 and S2 present. No murmurs, rubs, or gallops. PULMONARY: Chest is clear to auscultation, no wheezing or crackles. ABDOMEN: Soft, nontender, nondistended, normoactive bowel sounds. No palpable organomegaly. MUSCULOSKELETAL: No joint swelling or deformity. Right knee not swollen, surgical wound with dressing, rest of exam deferred to surgery team -EXTREMITIES: No cyanosis, clubbing, or pedal edema. NEUROLOGICAL: Gross neurological examination did not reveal any focal deficits. SKIN: No rashes. No petechiae Results CBC & Chem 7: 11/01/20 05:06 Labs: Abnormal Lab Results - Last 24 Hours (Table) 10/31/20 Range/Units 06:14 POC Glucose (mg/dL) 119 H (75-99) mg/dL Assessment and Plan Assessment: Osteoarthritis, status post right knee replacement Hypertension Hyperlipidemia History of hypothyroidism Plan: This is a pleasant 80 years old female status post right knee replacement. Labs and medication were reviewed.. Continue same treatment. Continue with symptomatic treatment. Resume home medication. Monitor lytes and vitals. DVT and GI prophylaxis. Further recommendations as per clinical course of the patient DVT prophylaxis and pain management as per primary team thank you for consulting us
[2020-11-01] MEDS ORDERED: carvediloL 12.5 MG TAB PO STA (10:58)
--- NOTE | 2020-11-01 11:14 | P.PN ---
Progress Note - Text 11/01/20 643AM 80 YEAR old female s/p tkr by Dr Fleming. pt has an on -q pump for post op pain control with a vas of 7 with the solution running at 8cc/hr.pain is located predominantly posteriorly as well as tourniquet pain. plan to continue pump infusion.
--- NOTE | 2020-11-01 11:44 | P.PN ---
Subjective Patient is admitted for right knee of the past patient is being discharged today patient is clinically doing well patient blood pressures are well controlled but did not receive her coreg or Norvasc. Patient will resume Coreg today, asked her to check the blood pressure at home if it starts going up patient can resume on amlodipine patient's blood pressure is expected to stay low for 2-3 days post surgery. Constitutional: Denied any fatigue denied any fever. Cardio vascular: denied any chest pain, palpitations Gastrointestinal denied any nausea vomiting Pulmonary: Denied any shortness of breath cough Neurologic denied any new focal deficits All inpatient medications were reviewed and appropriate changes in these medications as dictated in the interval history and assessment and plan. PHYSICAL EXAMINATION: GENERAL: The patient is alert and oriented x3, not in any acute distress. Well developed, well nourished. HEENT: Pupils are round and equally reacting to light. EOMI. No scleral icterus. No conjunctival pallor. Normocephalic, atraumatic. No pharyngeal erythema. No thyromegaly. CARDIOVASCULAR: S1 and S2 present. No murmurs, rubs, or gallops. PULMONARY: Chest is clear to auscultation, no wheezing or crackles. ABDOMEN: Soft, nontender, nondistended, normoactive bowel sounds. No palpable organomegaly. MUSCULOSKELETAL: Right knee postsurgically packed with some pain and tenderness in that area EXTREMITIES: No cyanosis, clubbing, or pedal edema. NEUROLOGICAL: Gross neurological examination did not reveal any focal deficits. SKIN: No rashes. Assessment and plan -Hypertension: Management as mentioned above -Right knee arthroplasty: Patient is on aspirin twice a day for DVT prophylaxis -Hyperlipidemia -Hypothyroidism For above-mentioned chronic medical problems patient can resume her home medications patient is medically stable to be discharged Objective - Vital Signs Vital signs: Vital Signs Temp 98.3 F 11/01/20 08:46 Pulse 71 11/01/20 08:46 Resp 17 11/01/20 08:46 BP 137/60 11/01/20 08:46 Pulse Ox 90 L 11/01/20 07:28 Intake & Output 10/31/20 11/01/20 11/01/20 18:59 06:59 18:59 Intake Total 451 Output Total 100 Balance 351 Intake: IV 451 Output: Estimated Blood Loss 100 Other: # Voids 1 1 - Labs CBC & Chem 7: 11/01/20 05:06 Labs: Abnormal Lab Results - Last 24 Hours (Table) 11/01/20 Range/Units 05:06 WBC 14.41 H (4.50-10.00) X 10*3/uL RBC 3.01 L (4.10-5.20) X 10*6/uL Hgb 9.5 L (12.0-15.0) g/dL Hct 28.7 L (37.2-46.3) % Immature Gran # 0.06 H (0.00-0.04) X 10*3/uL Neutrophils # 11.77 H (1.80-7.70) X 10*3/uL Monocytes # 1.30 H (0.20-1.00) X 10*3/uL Eosinophils # 0 L (0.04-0.35) X 10*3/uL
[2020-11-01] MEDS ORDERED: MULTIVITAMINS, THERA 1 EACH TAB PO SCH (12:00)
== END 2020-11-01 12:09 | disposition home health service (06) ==
LOC: OR 05:32 → 4SSUR 13:30 → OR 11-01 12:09
PROVIDERS: ATTEND Orthopaedic Surgery Sports Medicine
DX: I10 Essential (primary) hypertension (principal); E03.9 Hypothyroidism, unspecified; E78.5 Hyperlipidemia, unspecified; K52.839 Microscopic colitis, unspecified; M81.0 Age-related osteoporosis without current pathological fracture; Z79.82 Long term (current) use of aspirin; Z97.3 Presence of spectacles and contact lenses; M17.11 Unilateral primary osteoarthritis, right knee; Z80.1 Family history of malignant neoplasm of trachea, bronchus and lung; Z83.3 Family history of diabetes mellitus; Z82.49 Family history of ischemic heart disease and other diseases of the circulatory system; Z79.890 Hormone replacement therapy; Z98.890 Other specified postprocedural states; Z79.899 Other long term (current) drug therapy; Z88.5 Allergy status to narcotic agent; Z88.2 Allergy status to sulfonamides; Z91.040 Latex allergy status; Z88.8 Allergy status to other drugs, medicaments and biological substances
CPT/HCPCS: 97116; 97110; 97161; 64999; 64448; 76942; 85025; 88300; 73560; 27447; C1776; C1713; J2250; J1100; J0690 ×2; J2405; J2001; J3010; J2795 ×2; J2704; J1170

== ENCOUNTER → 2021-05-28 | Outpatient (CLI) | payer MEDICARE ==
--- NOTE | 2021-05-28 12:31 | ECHOF ---
Referral Reason:I10 Hypertension, R42 Dizziness MEASUREMENTS -------- HEIGHT: 157.5 cm WEIGHT: 54.4 kg BP: RVIDd: 2.5 cm (< 3.3) IVSd: 1.0 cm (0.6 - 1.1) LVIDd: 3.9 cm (3.9 - 5.3) LVPWd: 1.1 cm (0.6 - 1.1) IVSs: 1.7 cm LVIDs: 2.3 cm LVPWs: 1.4 cm LAESV Index (A-L): 36.62 ml/m Ao Diam: 3.0 cm (2.0 - 3.7) AV Cusp: 2.0 cm (1.5 - 2.6) LA Diam: 3.4 cm (2.7 - 3.8) MV EXCURSION: 14.967 mm (> 18.000) MV EF SLOPE: 208 mm/s (70 - 150) EPSS: 0.4 cm MV E Audie: 1.35 m/s MV DecT: 326 ms MV A Audie: 0.80 m/s MV E/A Ratio: 1.69 RAP: 5.00 mmHg RVSP: 37.80 mmHg TAPSE: 26.68 mm FINDINGS -------- This was a technically good study. The left ventricular size is normal. Left ventricular wall thickness is normal. Overall left vent ricular systolic function is normal with, an EF between 55 - 60 %. Increased LAP Grade 2 Diastolic Dysfunction. The right ventricle is normal in size. LA is moderately dilated 34-39 ml/m2 The right atrial size is normal. The aortic valve is trileaflet and appears structurally normal. The mitral valve is normal. Moderate mitral regurgitation is present. The tricuspid valve appears structurally normal. Mild tricuspid regurgitation present. There is m ild pulmonary hypertension. The right ventricular systolic pressure, as measured by Doppler, is 37. 80mmHg. Trace/mild (physiologic) pulmonic regurgitation. The aortic root size is normal. Normal inferior vena cava with normal inspiratory collapse consistent with estimated right atrial pre ssure of 5 mmHg. There is no pericardial effusion. CONCLUSIONS -------- 1. The left ventricular size is normal. 2. Left ventricular wall thickness is normal. 3. Overall left ventricular systolic function is normal with, an EF between 55 - 60 %. 4. Increased LAP Grade 2 Diastolic Dysfunction. 5. LA is moderately dilated 34-39 ml/m2 6. Moderate mitral regurgitation is present. 7. Mild tricuspid regurgitation present. 8. There is mild pulmonary hypertension. 9. The right ventricular systolic pressure, as measured by Doppler, is 37.80mmHg. 10. Trace/mild (physiologic) pulmonic regurgitation. 11. There is no pericardial effusion. VIDEO MANAGER: Jocelyn Ho RDCS
== END | disposition home or self-care (01) ==
LOC: RADECHMAIN 11:23
PROVIDERS: ATTEND Family Medicine
DX: I11.9 Hypertensive heart disease without heart failure (principal); I08.1 Rheumatic disorders of both mitral and tricuspid valves; I27.20 Pulmonary hypertension, unspecified
CPT/HCPCS: 93306

== ENCOUNTER → 2021-06-16 | Outpatient (CLI) | payer MEDICARE ==
--- NOTE | 2021-06-18 09:07 | MM ---
Reason for exam: screening (asymptomatic). Last mammogram was performed 1 year and 1 month ago. History: Patient is postmenopausal. Family history of breast cancer in maternal aunt. Took hormonal contraceptives for 6 months. Took estrogen for 6 months beginning at age 51. Took progesterone for 6 months beginning at age 51. Physical Findings: A clinical breast exam by your physician is recommended on an annual basis and results should be correlated with mammographic findings. MG 3D Screening Mammo W/Cad Bilateral CC and MLO view(s) were taken. Prior study comparison: May 17, 2020, bilateral MG 3d screening mammo w/cad. April 18, 2019, bilateral MG 3d screening mammo w/cad. The breast tissue is heterogeneously dense. This may lower the sensitivity of mammography. Finding: There are developing grouped/clustered, fine calcifications in the anterior position of the left breast near vascular calcification. New finding since May 17, 2020 and April 18, 2019. ASSESSMENT: Incomplete: need additional imaging evaluation, BI-RAD 0 RECOMMENDATION: Special view mammogram of the left breast. [facility] will attempt to contact patient to return for supplemental views.
== END | disposition home or self-care (01) ==
LOC: RADMAMWWP 09:49
PROVIDERS: ATTEND Family Medicine
DX: Z12.31 Encounter for screening mammogram for malignant neoplasm of breast (principal); Z80.3 Family history of malignant neoplasm of breast; Z78.0 Asymptomatic menopausal state
CPT/HCPCS: 77063; 77067

== ENCOUNTER → 2021-06-19 | Outpatient (CLI) | payer MEDICARE ==
--- NOTE | 2021-06-19 09:59 | MM ---
Reason for exam: additional evaluation requested from abnormal screening. Last mammogram was performed less than 1 month ago. History: Patient is postmenopausal. Family history of breast cancer in maternal aunt. Took hormonal contraceptives for 6 months. Took estrogen for 6 months beginning at age 51. Took progesterone for 6 months beginning at age 51. Physical Findings: A clinical breast exam by your physician is recommended on an annual basis and results should be correlated with mammographic findings. MG 3D Work Up W/Cad LT CC with magnification, LM with magnification, and LM view(s) were taken of the left breast. Prior study comparison: June 16, 2021, bilateral MG 3d screening mammo w/cad. May 17, 2020, bilateral MG 3d screening mammo w/cad. There are scattered fibroglandular densities. Finding: There are typically benign vascular, linear arranged calcifications in the left breast. No significant changes in finding since June 16, 2021 and May 17, 2020. ASSESSMENT: Probably benign, BI-RAD 3 RECOMMENDATION: Follow-up diagnostic mammogram of the left breast in 6 months. (with magnification views)
== END | disposition home or self-care (01) ==
LOC: RADMAMWWP 08:43
PROVIDERS: ATTEND Family Medicine
DX: R92.8 Other abnormal and inconclusive findings on diagnostic imaging of breast (principal); Z78.0 Asymptomatic menopausal state; Z80.3 Family history of malignant neoplasm of breast
CPT/HCPCS: 77065; G0279; 77061

== ENCOUNTER → 2021-12-23 | Outpatient (CLI) | payer MEDICARE ==
--- NOTE | 2021-12-23 13:37 | MM ---
Reason for Exam: Follow-up at short interval from prior study. Last screening mammogram was performed 6 month(s) ago. Patient History: Menarche at age 13. First Full-Term at age 25. Postmenopausal. Estrogen for 6 months from age 51 until age 51. Progesterone for 6 months from age 51 until age 51. Hormonal Contraceptives for 6 months. Maternal aunt had breast cancer. Risk Values: Noris 5 year model risk: 1.8%. NCI Lifetime model risk: 2.6%. Prior Study Comparison: 05/17/2020 Bilateral Screening Mammogram, [facility]. 06/16/2021 Bilateral Screening Mammogram, [facility]. 06/19/2021 Left Diagnostic Mammogram, [facility]. Tissue Density: Left: The breast tissue is heterogeneously dense. This may lower the sensitivity of mammography. Findings: Analyzed By CAD. No suspicious calcifications seen. Vascular calcifications noted. No evidence for mass or distortion. Overall Assessment: Benign, BI-RAD 2 Management: Screening Mammogram of both breasts in 6 months. A clinical breast exam by your physician is recommended on an annual basis and results should be correlated with mammographic findings. This exam should not preclude additional follow-up of suspicious palpable abnormalities. Results were given to the patient verbally at the time of exam. Electronically signed and approved by: Rodríguez White M.D. Radiologis
--- NOTE | 2021-12-23 15:04 | BD ---
EXAMINATION TYPE: Axial Bone Density DATE OF EXAM: 12/23/2021 COMPARISON: NONE CLINICAL HISTORY: 81 year old Female. ICD-10 CODE: M810 AGE RELATED OSTEOPOROSIS Height: 61.5 Weight: 125.1 FRAX RISK QUESTIONS: Alcohol (3 or more units per day): no Family History (Parent hip fracture): no Glucocorticoids (More than 3mos): no (Ex: prednisone, prednisolone, methylprednisolone, dexamethasone, and hydrocortisone). History of Fracture in Adulthood: no Secondary Osteoporosis: 1. Type 1 Diabetes: no 2. Hyperthyroidism: no 3. Menopause before 45: no 4. Malnutrition: no 5. Chronic liver disease: no Rheumatoid Arthritis: no Current Tobacco Use: no RISK FACTORS HISTORY OF: Surgery to Spine/Hip(right/left)/Wrist (right/left): yes lumbar spine disc removed When: 43 years ago Family History of Osteoporosis: no Active: yes Diet low in dairy products/other sources of calcium: yes Postmenopausal woman: yes Lost more than 2 inches in height since high school: yes MEDICATIONS: Thyroid Medications: levothyroxine How Lon years Additional History: EXAM MEASUREMENTS: Bone mineral density about the R hip (g/cm2): 0.899 Bone mineral density about the L hip (g/cm2): 0.917 T Score values are as follows: -----R Neck: -1.0 -----L Neck: -0.9 -----R Total: -1.3 -----L Total: -0.5 Bone mineral density : previous unavailable Bone mineral density about the L Wrist (g/cm2): 0.374 T Score values are as follows: -----Dist. R+U: -5.4 -----Prox. R+U: -3.5 -----Radius total: -5.0 Bone mineral density : previous unavailable FRAX%s: The graph provided illustrates a 11.1% chance for a major osteoporotic fx and a 2.4% chance f or the hips probability for fx in 10 years time. IMPRESSION: Osteoporosis (T Score less than -2.5). There is increased fracture risk and therapy is usually indicated based on age. Re-Screen 1-2 years. NOTE: T-SCORE=SD OF THE YOUNG ADULT MEAN.
== END | disposition home or self-care (01) ==
LOC: RADBDWWP 12:59
PROVIDERS: ATTEND Family Medicine
DX: R92.8 Other abnormal and inconclusive findings on diagnostic imaging of breast (principal); M81.0 Age-related osteoporosis without current pathological fracture; Z80.3 Family history of malignant neoplasm of breast
CPT/HCPCS: 77080; 77065; G0279; 77061

== ENCOUNTER → 2022-07-06 | Outpatient (CLI) | payer MEDICARE ==
--- NOTE | 2022-07-07 09:25 | MM ---
Reason for Exam: Screening (asymptomatic). Last mammogram was performed 1 year(s) and 1 month(s) ago. Patient History: Menarche at age 13. First Full-Term at age 25. Postmenopausal. Estrogen for 6 months from age 51 until age 51. Progesterone for 6 months from age 51 until age 51. Hormonal Contraceptives for 6 months. Maternal aunt had breast cancer, age 80. Risk Values: Noris 5 year model risk: 1.8%. NCI Lifetime model risk: 2.6%. Prior Study Comparison: 06/16/2021 Bilateral Screening Mammogram, [facility]. 06/19/2021 Left Diagnostic Mammogram, [facility]. 12/23/2021 Left MG 3D diag mammo w/cad LT, [facility]. Tissue Density: The breast tissue is heterogeneously dense. This may lower the sensitivity of mammography. Findings: Analyzed By CAD. There is no suspicious group of microcalcifications or new suspicious mass in either breast. Overall Assessment: Benign, BI-RAD 2 Management: Screening Mammogram of both breasts in 1 year. A clinical breast exam by your physician is recommended on an annual basis and results should be correlated with mammographic findings. Electronically signed and approved by: Rodríguez White M.D. Radiologis
== END | disposition home or self-care (01) ==
LOC: RADMAMWWP 12:07
PROVIDERS: ATTEND Family Medicine
DX: Z12.31 Encounter for screening mammogram for malignant neoplasm of breast (principal); Z78.0 Asymptomatic menopausal state; Z80.3 Family history of malignant neoplasm of breast
CPT/HCPCS: 77063; 77067

== ENCOUNTER 2023-03-09 16:40 | Emergency (ER) | payer MEDICARE ==
[2023-03-09 16:55] VITALS: RESP 18; TEMP 97.5
--- NOTE | 2023-03-09 16:55 | ED ---
General Adult HPI - General Source: patient, RN notes reviewed Mode of arrival: ambulatory Limitations: no limitations <Daisy Vanessa - Last Filed: 03/09/23 16:53> <Amado Shaw - Last Filed: 03/09/23 22:11> - General Chief complaint: Recheck/Abnormal Lab/Rx Stated complaint: HTN Time Seen by Provider: 03/09/23 16:53 - History of Present Illness Initial comments: 82-year-old female presents emergency with chief complaint of high blood pressure. She states that she noticed today she felt dizzy so she took her blood pressure which was elevated. She is on carvedilol almost on for her blood pressure but she is taking as prescribed. She denies chest pain, shortness of breath. (Daisy Vanessa) - Related Data Home Medications Medication Instructions Recorded Confirmed Alexandra Upton B.lactis 1 each PO DAILY 08/08/18 10/28/20 [Probiotic] Levothyroxine Sodium [Synthroid] 50 mcg PO QAM 08/08/18 10/31/20 Multivitamins, Thera [Multivitamin 1 tab PO DAILY 08/08/18 10/28/20 (formulary)] amLODIPine BESYLATE 5 mg PO HS 08/08/18 10/31/20 carvediloL 25 mg PO BID 08/08/18 10/31/20 Budesonide [Budesonide Dr] 6 mg PO QAM 10/28/20 10/31/20 Calcium Carbonate [Calcium] 600 mg PO BID 10/28/20 10/28/20 Cholecalciferol [Vitamin D3 (25 50 mcg PO DAILY 10/28/20 10/28/20 Mcg = 1000 Iu)] Vitamin E (Dl,Tocopheryl Acet) 1,000 unit PO DAILY 10/28/20 10/28/20 [Vitamin E (1000 Iu = 450 MG)] Previous Rx's Medication Instructions Recorded Aspirin [Adult Low Dose Aspirin EC] 81 mg PO BID #60 tablet.dr 11/01/20 Docusate [Colace] 100 mg PO BID #60 capsule 11/01/20 HYDROcodone/APAP 7.5-325MG [[place] 1 each PO Q4H PRN #42 tab 11/01/20 7.5-325] Ondansetron [Zofran] 4 mg PO Q8HR PRN #30 tab 11/01/20 Allergies Allergy/AdvReac Type Severity Reaction Status Date / Time codeine Allergy See Comment Verified 03/09/23 16:52 latex Allergy Rash/Hives Verified 03/09/23 16:52 Sulfa (Sulfonamide Allergy Rash/Hives Verified 03/09/23 16:52 Antibiotics) statins Allergy See Comment Uncoded 10/28/20 15:30 Review of Systems ROS Other: All systems not noted in ROS Statement are negative. <Daisy Vanessa - Last Filed: 03/09/23 16:53> ROS Other: All systems not noted in ROS Statement are negative. <Amado Shaw - Last Filed: 03/09/23 22:11> ROS Statement: Those systems with pertinent positive or pertinent negative responses have been documented in the HPI. Past Medical History Past Medical History: Hypertension Additional Past Medical History / Comment(s): ?IBS. Anemic. History of Any Multi-Drug Resistant Organisms: None Reported Past Surgical History: Back Surgery Additional Past Surgical History / Comment(s): Cysts removed, colonoscopies. Past Anesthesia/Blood Transfusion Reactions: Postoperative Nausea & Vomiting (PONV) Additional Past Anesthesia/Blood Transfusion Reaction / Comment(s): PONV X1. Past Psychological History: No Psychological Hx Reported Smoking Status: Never smoker Past Alcohol Use History: None Reported Past Drug Use History: None Reported - Past Family History Mother Family Medical History: Cancer Additional Family Medical History / Comment(s): Lung cancer. <Daisy Vanessa - Last Filed: 03/09/23 16:53> General Exam Limitations: no limitations <Daisy Vanessa - Last Filed: 03/09/23 16:53> - General Exam Comments Initial Comments: Visual Physical Exam Vital signs reviewed General: Well-appearing, nontoxic, no acute distress. Head: Normocephalic, atraumatic Eyes: PERRLA, EOMI ENT: Airway patent Chest: Nonlabored breathing Skin: No visual rash, normal skin tone Neuro: Alert and oriented 3 Musculoskeletal: No gross abnormalities (Daisy Vanessa) Course <Amado Shaw - Last Filed: 03/09/23 22:11> Vital Signs 03/09/23 03/09/23 16:50 22:04 Temperature 97.5 F L Pulse Rate 85 82 Respiratory 18 18 Rate Blood Pressure 214/72 157/82 O2 Sat by Pulse 97 98 Oximetry - Reevaluation(s) Reevaluation #1: 03/09/23 22:09 Patient reevaluated after being in the emergency department waiting room for several hours. Dizziness has improved. Blood pressure is 157/82. Patient feels well and is eager for discharge. (Amado Shaw) Medical Decision Making <Daisy Vanessa - Last Filed: 03/09/23 16:53> - Lab Data Result diagrams: 03/09/23 17:24 03/09/23 17:24 <Amado Shaw - Last Filed: 03/09/23 22:11> - Medical Decision Making Quick note performed by Daisy Vanessa PA-C (Daisy Vanessa) Was pt. sent in by a medical professional or institution ([facility], [facility], urgent care, hospital, or fdc...) When possible be specific @ -No Did you speak to anyone other than the patient for history (EMS, parent, family, police, friend...)? What history was obtained from this source @ -No Did you review nursing and triage notes (agree or disagree)? Why? @ -I reviewed and agree with nursing and triage notes Were old charts reviewed (outside hosp., previous admission, EMS record, old EKG, old radiological studies, urgent care reports/EKG's, fdc records)? Report findings @ -No old charts were reviewed Differential Diagnosis (chest pain, altered mental status, abdominal pain women, abdominal pain men, vaginal bleeding, weakness, fever, dyspnea, syncope, headache, dizziness, GI bleed, back pain, seizure, CVA, palpatations, mental health, musculoskeletal)? @ Hypertensive emergency, hypertensive urgency, asymptomatic hypertension EKG interpreted by me (3pts min.). @ Sinus rhythm with PVC rate of 72, MD interval 142, QRS duration 77, QTC [address] segment elevation. X-rays interpreted by me (1pt min.). @ -None done CT interpreted by me (1pt min.). @ -None done U/S interpreted by me (1pt. min.). @ -None done What testing was considered but not performed or refused? (CT, X-rays, U/S, labs)? Why? @ -None What meds were considered but not given or refused? Why? @ -None Did you discuss the management of the patient with other professionals (professionals i.e. , PA, [facility], lab, RT, psych nurse, nephrology social worker, copier technician, teacher, public safety officer, case maker)? Give summary @ -No Was smoking cessation discussed for >3mins.? @ -No Was critical care preformed (if so, how long)? @ -No Were there social determinants of health that impacted care today? How? (Homel essness, low income, unemployed, alcoholism, drug addiction, transportation, low edu. Level, literacy, decrease access to med. care, [place] [facility], rehab)? @ -No Was there de-escalation of care discussed even if they declined (Discuss DNR or withdrawal of care, Hospice)? DNR status @ -No What co-morbidities impacted this encounter? (DM, HTN, Smoking, COPD, CAD, Cancer, CVA, ARF, Chemo, Hep., AIDS, mental health diagnosis, sleep apnea, morbid obesity)? @ -Hypertension Was patient admitted / discharged? Hospital course, mention meds given and route, prescriptions, significant lab abnormalities, going to OR and other pertinent info. @ 82-year-old female with elevated blood pressure earlier today. Patient had some dizziness without headache. No focal numbness or weakness. She was in the waiting room for an extended period of time and when reevaluated by myself she was feeling better. Blood pressure was improved. Patient had normal CBC, relatively normal CMP. She is in sinus rhythm. She will monitor her blood pressure at home and she is given strict return parameters including headache, chest pain, abdominal pain, focal numbness or weakness. Worsening dizziness. Undiagnosed new problem with uncertain prognosis? @ -No Drug Therapy requiring intensive monitoring for toxicity (Heparin, Nitro, Insul in, Cardizem)? @ -No Were any procedures done? @ -No Diagnosis/symptom? @ Hypertension Acute, or Chronic, or Acute on Chronic? @ Acute on chronic Uncomplicated (without systemic symptoms) or Complicated (systemic symptoms)? @ -default Side effects of treatment? @ -No Exacerbation, Progression, or Severe Exacerbation? @ -No Poses a threat to life or bodily function? How? (Chest pain, USA, AR, pneumonia, PE, COPD, DKA, ARF, appy, cholecystitis, CVA, Diverticulitis, Homicidal, Suicidal, threat to staff... and all critical care pts) @ -[Low risk at this time (Amado Shaw) - Lab Data Lab Results 03/09/23 03/09/23 Range/Units 17:24 17:24 WBC 10.6 (3.8-10.6) k/uL RBC 4.57 (3.80-5.40) m/uL Hgb 14.3 (11.4-16.0) gm/dL Hct 43.3 (34.0-46.0) % MCV 94.8 (80.0-100.0) fL MCH 31.4 (25.0-35.0) pg MCHC 33.1 (31.0-37.0) g/dL RDW 13.4 (11.5-15.5) % Plt Count 315 (150-450) k/uL MPV 7.8 Neutrophils % 80 % Lymphocytes % 12 % Monocytes % 4 % Eosinophils % 1 % Basophils % 1 % Neutrophils # 8.5 H (1.3-7.7) k/uL Lymphocytes # 1.3 (1.0-4.8) k/uL Monocytes # 0.5 (0-1.0) k/uL Eosinophils # 0.1 (0-0.7) k/uL Basophils # 0.1 (0-0.2) k/uL Sodium 140 (137-145) mmol/L Potassium 4.3 (3.5-5.1) mmol/L Chloride 102 (98-107) mmol/L Carbon Dioxide 23 (22-30) mmol/L Anion Gap 15 mmol/L BUN 23 H (7-17) mg/dL Creatinine 0.53 (0.52-1.04) mg/dL Est GFR (CKD-EPI)AfAm >90 (>60 ml/min/1.73 sqM) Est GFR (CKD-EPI)NonAf 89 (>60 ml/min/1.73 sqM) Glucose 117 H (74-99) mg/dL Calcium 10.6 H (8.4-10.2) mg/dL Total Bilirubin 0.3 (0.2-1.3) mg/dL AST 33 (14-36) U/L ALT 24 (4-34) U/L Alkaline Phosphatase 84 (38-126) U/L Total Protein 8.6 H (6.3-8.2) g/dL Albumin 5.2 H (3.5-5.0) g/dL Disposition <Daisy Vanessa - Last Filed: 03/09/23 16:53> Is patient prescribed a controlled substance at d/c from ED?: No Time of Disposition: 22:08 <Amado Shaw - Last Filed: 03/09/23 22:11> Clinical Impression: Hypertension Disposition: HOME SELF-CARE Condition: Fair Instructions (If sedation given, give patient instructions): Hypertension (ED) Referrals: Corrie Butterfield MD [Primary Care Provider] - 1-2 days
[2023-03-09 17:35] LABS: Basophils # (A) 0.1 k/uL (0-0.2); Basophils % (A) 1 %; Eosinophils # (A) 0.1 k/uL (0-0.7); Eosinophils % (A) 1 %; HCT 43.3 % (34.0-46.0); HGB 14.3 gm/dL (11.4-16.0); Lymphocytes # (A) 1.3 k/uL (1.0-4.8); Lymphocytes % (A) 12 %; MCH 31.4 pg (25.0-35.0); MCHC 33.1 g/dL (31.0-37.0); MCV 94.8 fL (80.0-100.0); Mean Platelet Volume 7.8; Monocytes # (A) 0.5 k/uL (0-1.0); Monocytes % (A) 4 %; Neutrophils # (A) 8.5 k/uL (1.3-7.7); Neutrophils % (A) 80 %; Platelet Count 315 k/uL (150-450); RBC 4.57 m/uL (3.80-5.40); RDW 13.4 % (11.5-15.5); WBC 10.6 k/uL (3.8-10.6)
[2023-03-09 18:30] LABS: ALT 24 U/L (4-34); AST 33 U/L (14-36); African American GFR (CKD) >90 (>60 ml/min/1.73 sqM); Albumin 5.2 g/dL (3.5-5.0); Alkaline Phosphatase 84 U/L (38-126); Anion Gap 15 mmol/L; Blood Urea Nitrogen 23 mg/dL (7-17); Calcium 10.6 mg/dL (8.4-10.2); Carbon Dioxide 23 mmol/L (22-30); Chloride 102 mmol/L (98-107); Glucose 117 mg/dL (74-99); Non-African American GFR(CKD) 89 (>60 ml/min/1.73 sqM); Potassium 4.3 mmol/L (3.5-5.1); Sodium 140 mmol/L (137-145); Total Bilirubin 0.3 mg/dL (0.2-1.3); Total Protein 8.6 g/dL (6.3-8.2)
[2023-03-09 22:13] VITALS: BP 157/82; PULSE 82
== END 2023-03-09 22:16 | disposition home or self-care (01) ==
LOC: EC 16:40
DX: I10 Essential (primary) hypertension (principal); Z88.5 Allergy status to narcotic agent; Z88.2 Allergy status to sulfonamides; Z91.040 Latex allergy status; Z88.8 Allergy status to other drugs, medicaments and biological substances
CPT/HCPCS: 36415; 80053; 85025; 93005; 99283

== ENCOUNTER → 2023-08-12 | Outpatient (CLI) | payer MEDICARE ==
--- NOTE | 2023-08-12 18:57 | MM ---
Reason for Exam: Screening (asymptomatic). Last mammogram was performed 1 year(s) and 1 month(s) ago. Patient History: Menarche at age 13. First Full-Term at age 25. Postmenopausal. Estrogen for 6 months from age 51 until age 51. Progesterone for 6 months from age 51 until age 51. Hormonal Contraceptives for 6 months. Maternal aunt (great) had breast cancer, age 80. Risk Values: Noris 5 year model risk: 1.7%. NCI Lifetime model risk: 2.3%. Prior Study Comparison: 04/06/2018 Bilateral Screening Mammogram, [facility]. 04/22/2018 Left Diagnostic Mammogram, [facility]. 10/24/2018 Left Diagnostic Mammogram, [facility]. 04/18/2019 Bilateral Screening Mammogram, [facility]. 05/17/2020 Bilateral Screening Mammogram, [facility]. 06/16/2021 Bilateral Screening Mammogram, [facility]. 06/19/2021 Left Diagnostic Mammogram, [facility]. 12/23/2021 Left MG 3D diag mammo w/cad LT, [facility]. 07/06/2022 Bilateral MG 3D screening mammo w/cad, [facility]. Tissue Density: The breasts are heterogeneously dense, which may obscure small masses. Findings: Analyzed By CAD. Coarse calcifications on both sides as well as vascular calcifications are unchanged. Areas of asymmetric density on the left are also unchanged. There is no suspicious group of microcalcifications or new suspicious mass in either breast. Overall Assessment: Benign, BI-RAD 2 Management: Screening Mammogram of both breasts in 1 year. . Patient should continue monthly self-breast exams. A clinical breast exam by your physician is recommended on an annual basis. This exam should not preclude additional follow-up of suspicious palpable abnormalities. Note on Noris scores and lifetime risk: 1. A Noris score greater than 3% is considered moderate risk. If this is the case, consider specialist referral to assess eligibility for a risk reducing agent. 2. If overall lifetime risk for the development of breast cancer is 20% or higher, the patient may qualify for future screening with alternating mammogram and breast MRI. Electronically signed and approved by: Beto Soler M.D. Radiologist
== END | disposition home or self-care (01) ==
LOC: RADMAMWWP 07:56
PROVIDERS: ATTEND Family Medicine
DX: Z12.31 Encounter for screening mammogram for malignant neoplasm of breast (principal); Z80.3 Family history of malignant neoplasm of breast; Z78.0 Asymptomatic menopausal state
CPT/HCPCS: 77063; 77067

== ENCOUNTER → 2024-10-02 | Outpatient (CLI) | payer MEDICARE ==
--- NOTE | 2024-10-02 14:21 | MM ---
Reason for Exam: Screening (asymptomatic). Last mammogram was performed 1 year(s) and 2 month(s) ago. Patient History: Menarche at age 13. First Full-Term at age 25. Postmenopausal. Estrogen for 6 months from age 51 until age 51. Progesterone for 6 months from age 51 until age 51. Hormonal Contraceptives for 6 months. Maternal aunt (great) had breast cancer, age 80. Risk Values: Noris 5 year model risk: 1.7%. NCI Lifetime model risk: 2.0%. Prior Study Comparison: 12/23/2021 Left MG 3D diag mammo w/cad LT, [facility]. 07/06/2022 Bilateral MG 3D screening mammo w/cad, [facility]. 08/12/2023 Bilateral MG 3D screening mammo w/cad, [facility]. Tissue Density: There are scattered areas of fibroglandular density. Findings: Analyzed By CAD. There are benign-appearing vascular calcifications bilaterally redemonstrated. There are benign-appearing dystrophic calcifications in the right breast redemonstrated. There is a group of benign-appearing round calcifications in the left breast redemonstrated. There is no suspicious group of microcalcifications or new suspicious mass in either breast. Overall Assessment: Benign, BI-RAD 2 Management: Screening Mammogram of both breasts in 1 year. . Patient should continue monthly self-breast exams. A clinical breast exam by your physician is recommended on an annual basis. This exam should not preclude additional follow-up of suspicious palpable abnormalities. Note on Noris scores and lifetime risk: 1. A Noris score greater than 3% is considered moderate risk. If this is the case, consider specialist referral to assess eligibility for a risk reducing agent. 2. If overall lifetime risk for the development of breast cancer is 20% or higher, the patient may qualify for future screening with alternating mammogram and breast MRI. [facility], , 10/02/2024 2:18 PM. Electronically signed and approved by: Bill Ríos M.D.
--- NOTE | 2024-10-02 14:22 | BD ---
EXAMINATION TYPE: Axial Bone Density DATE OF EXAM: 10/02/2024 CLINICAL HISTORY: 83 years old Female. ICD-10 CODE: N95.1 MENOPAUSAL AND FEMALE CLIMA , Additional H istory: Height: 61.2 Weight: 122 FRAX RISK QUESTIONS: Secondary Osteoporosis: RISK FACTORS HISTORY OF: Surgery to Spine/Hip(right/left)/Wrist (right/left): lumbar disc removed When: in the 1969's MEDICATIONS: Thyroid Medications: Which medication: Levothyroxine How Lon-15 years EXAM MEASUREMENTS: Bone mineral densitometry was performed using the [employer] System. Bone mineral density as measured about the Lumbar spine is: ----- L1-L4(G/cm2): 1.135 T Score Values are as follows: ----- L1: -2.3 ----- L2: -1.2 ----- L3: 0.3 ----- L4: 1.6 ----- L1-L4: -0.4 Z Score Values are as follows: ----- L1: 0.0 ----- L2: 1.0 ----- L3: 2.5 ----- L4: 3.9 ----- L1-L4: 1.8 Bone mineral density has: No comparison Bone mineral density about the R hip (g/cm2): 0.853 Bone mineral density about the L hip (g/cm2): 0.955 T Score values are as follows: -----R Neck: -1.0 -----L Neck: -0.5 -----R Total: -1.2 -----L Total: -0.4 Z Score values are as follows: -----R Neck: 1.5 -----L Neck: 2.1 -----R Total: 1.2 -----L Total: 2.0 Bone mineral density has: Increased 0.7% since study of: 12-23-21 FRAX%s: The graph provided illustrates a 11.0% chance for a major osteoporotic fx and a 2.6% chance f or the hips probability for fx in 10 years time. IMPRESSION: Osteopenia (T Score between -2.5 and -1) remains present. There is slightly increased risk of fracture and the patient may be considered for treatment. Re-Screen 2-5 years. NOTE: T-SCORE=SD OF THE YOUNG ADULT MEAN. [facility], , 10/02/2024 2:20 PM
== END | disposition home or self-care (01) ==
LOC: RADBDWWP 12:51
PROVIDERS: ATTEND Family Medicine
DX: Z12.31 Encounter for screening mammogram for malignant neoplasm of breast (principal); R92.323 Mammographic fibroglandular density, bilateral breasts; M85.89 Other specified disorders of bone density and structure, multiple sites; Z78.0 Asymptomatic menopausal state; Z80.3 Family history of malignant neoplasm of breast; Z92.0 Personal history of contraception
CPT/HCPCS: 77063; 77067; 77080